=== PATIENT | female | born 1960 | race Caucasian/White ===

== ENCOUNTER 2018-04-14 19:55 | Inpatient (IN) | payer BC, OTHER ==
[~2018-04-14] VITALS: Ht 149.9 cm; Wt 94.6 kg
[~2018-04-14 19:55] MED LIST: COZAAR50 MG PO; HYDROCODON-ACE1 EA12 PO; METFORMIN HCL1000 MG PO; ZOCOR20 MG PO
--- OUTSIDE RECORDS SUMMARY | 2018-04-14 19:57 | XMS REPORT ---
Author Author [facility] Address Unknown Phone Unavailable Care Team Providers Care Water Softener Servicer And Installer Name Role Phone Unavailable Unavailable Payers Payer Name Policy Type Policy Number Effective Date Expiration Date Problems This patient has no known problems. Allergies, Adverse Reactions, Alerts Allergy Name Allergy Type Status Severity Reaction(s) Onset Date Inactive Date Treating Clinician Comments Sulfa (Sulfonamide Antibiotics) DA Active SV 2015-09-15 00:00:00 Medications This patient has no known medications.
[2018-04-14] MEDS ORDERED: ASPIRIN 81 MG CHEW TAB PO ONE (20:15)
--- NOTE | 2018-04-14 20:30 | NUR ---
ER INFORMED OF POSTIVE TROPONIN OF 0.29 - RERUN OF CARDIAC MARKERS ORDERED SPECIMEN WAS HEMOLYZED
--- NOTE | 2018-04-14 21:00 | NUR ---
ER MD INFORMED OF SECOND POSITIVE TROPONIN ATER RERUN OF 0.25
--- NOTE | 2018-04-14 21:48 | Diagnostic Imaging Report ---
EXAM: CT CHEST WITH CONTRAST-HOPD DATE: 04/14/2018 12:00 AM INDICATION: Chest pain, shortness of breath COMPARISON: None TECHNIQUE: Multidetector CT scanning of the chest was performed. Coronal and sagittal multiplanar reformations were obtained. CT low dose techniques were utilized, as applicable. IV Contrast: 100 ml Isovue 370/300 FINDINGS: LUNGS AND PLEURA: No consolidations or edema. No effusions or pneumothorax. HEART, MEDIASTINUM, VESSELS: Normal heart size and aortic caliber. Coronary artery and aortic atherosclerotic calcifications. Slightly suboptimal contrast bolus (HU 238); otherwise no evidence of acute pulmonary embolism. The main pulmonary artery is borderline enlarged, 3 cm. UPPER ABDOMEN: Unremarkable. MUSCULOSKELETAL: No acute findings. IMPRESSION: No evidence of acute pulmonary embolism or other acute abnormality. Signed by: Dr Penny Rehman MD on 04/14/2018 9:45 PM
--- NOTE | 2018-04-14 21:55 | Diagnostic Imaging Report ---
CXR 1 VEW - HOPD, Technique: CXR 1 VEW - HOPD Comparison: None Clinical history: Chest pain, shortness of breath DISCUSSION: Heart size is upper limits of normal. Otherwise unremarkable appearance of the heart, mediastinum, lungs and pleural spaces. IMPRESSION: No acute abnormality Signed by: Dr Penny Rehman MD on 04/14/2018 9:51 PM
[2018-04-14] MEDS ORDERED: ENOXAPARIN SODIUM INJ 100 MG/ML SYR SC STA (22:14)
[2018-04-14] MEDS ORDERED: AMLODIPINE BESY10 MG PO (22:24)
[2018-04-14] MEDS ORDERED: GLYBURIDE5 MG PO (22:24)
[2018-04-14] MEDS ORDERED: LASIX20 MG PO (22:24)
[2018-04-14] MEDS ORDERED: METOPROLOL TART50 MG PO (22:24)
[2018-04-14] MEDS ORDERED: DEXTROSE 50% SYRINGE 50 ML IV PRN (22:30)
[2018-04-14] MEDS ORDERED: NITROGLYCERIN 0.4 MG SUBL SL PRN (22:30)
[2018-04-14] MEDS ORDERED: METOPROLOL TARTRATE 25 MG TAB PO SCH (22:30)
--- NOTE | 2018-04-14 23:22 | NUR ---
[facility] CALLED - ETA 30MINS
[2018-04-15] VITALS (10 sets, daily range): BP systolic 116–142; BP diastolic 65–81
--- NOTE | 2018-04-15 03:57 | NUR ---
PT ARRIVED ON THE UNIT VIA STRETCHER AT 2348. PT IS A&OX3. PT DENIES CHEST PAIN, SOB, AND N/V. RESPIRATION IS EVEN AND UNLABORED, NO DISTRESS NOTED. PT ORIENTED TO THE ROOM, BED IN THE LOWEST POSITION, LOCKED, AND CALL LIGHT WITHIN REACH. ADMISSION AND HEAD TO TOE ASSESSMENT COMPLETE. WILL CONTINUE TO MONITOR.
[2018-04-15 06:17] LABS: CHOL/HDL RATIO 5.4 (3.0-3.6)
[2018-04-15] MEDS ORDERED: CLOPIDOGREL BISULFATE 75 MG TAB PO NR (06:30)
--- NOTE | 2018-04-15 06:41 | NUR ---
NOTIFIED DR Kashmir YUSUF OF TROPONIN OF 1.8. PER DR YUSUF KEEP PT NPO, NS AT 70ML/HR, AND PLAVIX X1 600MG. WILL CONTINUE TO MONITOR.
[2018-04-15] MEDS: SODIUM CHLORIDE 0.9% 1000ML 1,000 ML IV SCH ×2 (07:08→21:04)
[2018-04-15] MEDS: INSULIN REGULAR, HUMAN 100 UNIT/1 ML 3ML VIAL SQ SCH ×4 (07:30→21:05)
--- NOTE | 2018-04-15 07:37 | NUR ---
pt resting in bed, no s/s distress. no c/o CP. pending possible cardiac intervention/procedure. pt NPO. will continue to monitor.
[2018-04-15] MEDS: FUROSEMIDE 20 MG TAB PO SCH (07:38)
[2018-04-15] MEDS: GLYBURIDE 5 MG TAB PO SCH ×2 (07:38→17:17)
[2018-04-15] MEDS: ASPIRIN 325 MG TAB EC PO SCH (07:39)
[2018-04-15] MEDS ORDERED: METFORMIN HCL 500 MG TAB PO SCH (08:00)
[2018-04-15] MEDS: AMLODIPINE BESYLATE 10 MG TAB PO SCH ×2 (09:00→17:17)
[2018-04-15] MEDS ORDERED: AMLODIPINE BESYLATE 10 MG TAB PO SCH (09:00)
[2018-04-15] MEDS ORDERED: METOPROLOL TARTRATE 25 MG TAB PO SCH (09:00)
[2018-04-15] MEDS ORDERED: FENTANYL CITRATE/PF 100MCG/2 ML INJ ONE (10:04)
[2018-04-15] MEDS ORDERED: LIDOCAINE HCL 2% LOCAL 20 ML VIAL ONE (10:04)
[2018-04-15] MEDS ORDERED: IOPAMIDOL 370 MG/ML 200 ML INFUS..BTL INJ ONE ×2 (10:04→10:57)
[2018-04-15] MEDS ORDERED: HEPARIN SOD/SOD CHLORIDE 2,000 ML ONE (10:04)
[2018-04-15] MEDS ORDERED: MIDAZOLAM HCL 2 MG/2 ML VIAL ONE ×2 (10:04→10:56)
[2018-04-15] MEDS ORDERED: SODIUM CHLORIDE 0.9% 1000ML 1,000 ML ONE (10:04)
--- NOTE | 2018-04-15 10:21 | NUR ---
consent signed, pt leaving unit for procedure
--- NOTE | 2018-04-15 10:35 | NUR ---
SPIRITUAL CARE - Pre-procedure Assessment: Pt requested prayer with Gis Scientist prior to cath. Intervention: Gis Scientist provided pastoral presence, hospitality, and sympathetic listening. Provided prayer. Outcome: Pt expressed appreciation. No need for follow up indicated at this time. [facility] Spiritual Care Department O: [phone] Pager: [phone] ([phone] number calling from)
--- NOTE | 2018-04-15 10:40 | NUR ---
CASE MANAGEMENT INITIAL ASSESSMENT Bakeshop Cleaner to bedside to discuss plan of care with patient/family. CM/SW role and care transitions discussed. Anticipated discharge plan discussed along with duration of care. CM/SW discussed patients right to make decisions in care. CM/SW work hours given. Patient lives: IN APARTMENT WITH GRANDSON Admit/Transfer: VIA ED FROM HOME POA/Emergency contact: KIN [phone] AND MARYANNE LEROY SISTER [phone] Current/Previous Home Health: NONE PCP/Follow-up Care: [facility] Current/Previous DME: NONE Other Services: NONE Employment Status: WORKS AT [employer] Areas of Concerns: NONE Referral Needs: NONE Education Needs: HEART DISEASE SPOKE WITH NURSE TO EDUCATE IMM/SMITH given and signed (if applicable): NA Goal for discharge: RETURN HOME INDEPENDENTLY CM/SW left business card at the bedside with contact information. Name and number was also written on the patients whiteboard. Patient verbalized understanding of discussion. CM will follow-up with ongoing discharge and transition of care needs.
--- NOTE | 2018-04-15 10:44 | Consultation ---
DATE OF CONSULTATION: April 15, 2018 CARDIOLOGY CONSULTATION REASONS FOR CONSULTATION: Myocardial infarction and elevated troponin. HISTORY: This is a 57-year-old lady who is known with longstanding history of diabetes mellitus, hypertension and hypercholesterolemia. She is followed by her physician. She is on oral hypoglycemic agents, statin, beta tracy and calcium channel tracy. Recently, she was given a prescription for insulin, but she did not start on that because of poorly controlled diabetes. The patient is also known to have GERD-like symptoms. Yesterday, she had prolonged episodes of chest pain, and she is having this episode more frequently. It felt like heartburn. Yesterday the pain was very severe, radiating to her back, associated with diaphoresis. She sought medical attention. She was seen in the emergency room and admitted for further management. Her 2nd set of cardiac enzymes showed troponin of 1.8, CK total of 182 and MB of 9. Cardiac consultation is obtained. I visited with the patient. Her symptoms are very typical for unstable coronary syndrome and acute coronary event. REVIEW OF SYSTEMS CARDIAC: As per acute illness in addition to moderate shortness of breath on exertion prior to this illness. Possible sleep apnea. No orthopnea. No paroxysmal nocturnal dyspnea. PULMONARY: No recent travel. No cough. No hemoptysis. GI: Repeated GERD-like symptoms but no hematemesis and no melena. : Increased frequency of urination, repeated urinary tract infections. MUSCULOSKELETAL: Back pain. NEUROLOGIC: Peripheral neuropathy-like symptoms. ENDOCRINE: Patient has poorly controlled diabetes mellitus. HEMATOLOGY: No easy bruising or bleeding. SOCIAL HISTORY: Her granddaughter lives with her. She is a divorcee. She is nonsmoker and jzm-sguiena-bmkttqy. She works at [employer]. HOME MEDICATIONS: Long list includin. Cozaar 50 mg a day. 2. Zocor 20 mg a day. 3. Metformin 1,000 mg twice a day. 4. Lopressor 25 mg twice a day. 5. Amlodipine 5 mg twice a day. 6. Amaryl 4 mg twice a day. 7. Recently insulin was started, but she has not taken it yet. ALLERGIES: SULFA. THE PATIENT ALSO HAS REPEATED ALLERGIES AND HAY FEVER-LIKE SYMPTOMS. PAST MEDICAL HISTORY 1. Hypertension. 2. Diabetes mellitus. 3. Hyperlipidemia. 4. Hysterectomy. 5. Right arthroscopic surgery. 6. Tonsillectomy. 7. Tubal ligation. FAMILY HISTORY: Father in his 40s with liver cirrhosis. Mother had diabetes and in her 50s. Three brothers, 2 of them already had stents. Four sisters. One sister had a problem with cancer. PHYSICAL EXAMINATION VITALS: Height of 4 feet 11 inches, weight of 210 pounds. Blood pressure 130/70. Heart rate of 80. Respiratory rate of 18. HEENT: Pupils are equal and reactive. NECK: No elevation of jugular venous pulsation. No bruit. CHEST: Decreased air entry and crackles. HEART: PMI at 1st left intercostal space. Normal 1st and 2nd heart sounds. ABDOMEN: Soft with good bowel sounds. EXTREMITIES: No cyanosis. No clubbing. No edema. NEUROLOGIC: Grossly nonfocal. LAB DATA: White blood cell count of 8000. Hemoglobin 12.6, hematocrit 32%. Platelet count 193,000. Sodium 142, potassium 4, BUN 12, creatinine 1, glucose 261. Troponin is 1.8. Triglycerides of 202, cholesterol 220, HDL 41, LDL 139. EKG showing normal sinus rhythm. QS in septal leads. Nonspecific ST changes. IMPRESSION AND PLAN 1. Mmi-HS-jjsjsguib myocardial infarction. 2. Hypertension. 3. Diabetes mellitus. 4. Hypercholesterolemia. 5. Obesity. Patient loaded with Plavix. The patient will be taken to the cardiac metallurgical laboratory assistant for cath with possible intervention. The procedure, risks, benefits and alternatives are discussed and explained. Patient would like to first talk to her family, and then we will proceed with our procedure. Pros and cons of treatment are discussed and explained, and questions are answered. Job#: [id number]
[2018-04-15] MEDS ORDERED: BIVALRIUDIN 250 MG/VIAL VIAL IV ONE (10:50)
[2018-04-15] MEDS ORDERED: SODIUM CHLORIDE 0.9% 50ML 50 ML ONE (10:51)
[2018-04-15] MEDS ORDERED: CLOPIDOGREL BISULFATE 75 MG TAB ONE (11:14)
[2018-04-15] MEDS ORDERED: ASPIRIN 325 MG TAB ONE (11:15)
[2018-04-15] MEDS ORDERED: CEFAZOLIN SOD 2 GM/D5W 50ML 50 ML IV ONE (11:15)
[2018-04-15] MEDS ORDERED: ACETAMINOPHEN 325 MG TAB PO PRN (11:30)
--- NOTE | 2018-04-15 12:00 | NUR ---
pt returned from labor law professor, aware of interventions done. vs stable. pulses palpable BLE. dressing to right groin CDI. pt aware to remain flat/straight until 330pm. family at bedside and feeding pt in reverse Trendelenburg
--- NOTE | 2018-04-15 12:35 | History and Physical ---
HISTORY OF PRESENT ILLNESS: Patient is a 57-year-old female who has a past medical history positive for diabetes, hypertension, obesity, hyperlipidemia, who came to the hospital complaining of chest pain radiating to the left side of the chest. Patient had a right bundle-branch block on the EKG. She was found to have elevated troponins. The patient was seen by Dr. Molina, licensed customs broker. The patient was taken to the cardiac cath. She was found to have triple-vessel disease, more severe in the left anterior descending artery. She had a stent placed. The patient is asymptomatic right now. REVIEW OF SYSTEMS CARDIOVASCULAR: She has chest pain, which is oppressive type, radiating to the left axillary area. No shortness of breath. RESPIRATORY: No shortness of breath and no cough. GASTROINTESTINAL: No nausea, no vomiting, no diarrhea. GENITOURINARY: No frequency. No dysuria. ALLERGIES: SHE CLAIMS SHE IS NOT ALLERGIC TO ANY MEDICATION. SOCIAL HISTORY: She does not smoke. She does not drink. PAST MEDICAL HISTORY: Hypertension, diabetes, hyperlipidemia. PHYSICAL EXAMINATION HEART: Regular rhythm. Normal S1, S2 sounds. LUNGS: Clear bilaterally. ABDOMEN: Soft. EXTREMITIES: No evidence of cyanosis, edema or trauma. She has a right leg with a puncture area from the cardiac cath. VITALS: Blood pressure 138/68, temperature 97.3, heart rate 91 per minute, respiratory rate 14 per minute. Oxygen saturation 95%. LABS: Cardiac enzymes were elevated, of course. FINAL IMPRESSION 1. Coronary artery disease, status post vgd-UX-ttlnkaica myocardial infarction, status post left anterior descending stent. 2. Uncontrolled diabetes mellitus, type 2. 3. Essential hypertension. 4. Mixed hyperlipidemia. 5. Obesity. PLAN OF TREATMENT: Continue aspirin 325 mg daily, metoprolol 25 mg twice a day, nitroglycerin 0.5 mg q.5 minutes sublingual p.r.n. for chest pain, no more than 3 tablets, glyburide 5 mg twice a day. Diabetic diet. Monitor blood sugar a.c. and nightly. Amlodipine 5 mg twice a day, Lipitor 40 mg daily, furosemide [address] Molina is on the case from cardiology. We are going to continue telemetry. Job#: [id number]
--- NOTE | 2018-04-15 13:18 | NUR ---
received report from raul in obs. pt is transferring from room 182 to 114. awaiting for pt to arrive to floor
[2018-04-15 13:42] LABS: CREATINE KINASE MB 7.4 ng/mL (0-5.0)
--- NOTE | 2018-04-15 14:17 | NUR ---
received pt to floor [id number]. pt is laying flat per protocol after labor and delivery nurse stent placement. pulse on bilateral feet present . right groin dressing dry and intact. pt aware of laying flat in bed until 15 30. family at bedside, call light is within easy reach, instructed to call for assistance if needed
--- NOTE | 2018-04-15 14:23 | NUR ---
spoke with md chapman regarding 1300 troponin level. states its reflective of cardiac cath stent placement done this afternoon. states pt does not need any more cardiac markers at this time. orders received
--- NOTE | 2018-04-15 15:01 | Operative Report ---
DATE OF PROCEDURE: April 15, 2018 PROCEDURES PERFORMED 1. Left heart cardiac catheterization with coronary angiography. 2. Left ventriculography. 3. Percutaneous coronary intervention with drug-eluting stent placement to the culprit proximal left anterior descending. 4. Angio-Seal closure of the right common femoral arteriotomy. INDICATION FOR PROCEDURE: A 57-year-old lady with history of hypertension, type 2 diabetes, obesity, presents to this institution with chest pain and keu-XN-bcdiudjkf myocardial infarction with troponin above 1.5. This is an urgent procedure that was done. DESCRIPTION OF PROCEDURE: After risks, benefits, pros and cons of today's procedure were explained, patient agreed to proceed. Patient was brought to the cardiac catheterization laboratory where the right groin was prepped and draped in the usual sterile fashion. Lidocaine 1% solution was used to numb the right groin region. Access to the right femoral artery was obtained, and a 4-Slovenian femoral sheath was placed. Selective coronary angiography of the citizen [place] left and right coronary arteries was performed with a JL-4 and 3DRC diagnostic catheters respectively. An angled pigtail was placed into the ventricle for ventriculography and hemodynamic assessment of the left ventricular filling pressures. After noting thrombus in the small 1st diagonal branch with a ruptured plaque and haziness in the prox-mid LAD with an 80% stenosis, this was deemed to be the culprit site. The 4-Slovenian femoral sheath at that point was upsized to a 6-Slovenian femoral sheath. A 6-Slovenian XB-3.5 LAD sidehole guiding catheter was utilized to select the left main coronary ostia. Utilizing a 300 cm 0.014 Bennett XT guidewire, we successfully crossed the lesion. We went in with a direct stenting strategy with a Resolute Tim 2.75 x 0.2 mm drug-eluting stent deployed up to 20 atmospheres pressure for 30 seconds. Final angiography revealed there was 0% residual stenosis, ANSELMO 3 flow and no complications. At that point in time, we decided to conclude the case. The femoral angiogram was performed, revealing a femoral artery stick, and a 6-Slovenian Angio-Seal closure device was successfully deployed, achieving hemostasis. COMPLICATIONS: None. ESTIMATED BLOOD LOSS: Minimal. FINDINGS 1. The left main is angiographically normal and gives rise to an LAD and circumflex branch. 2. The LAD has a heavily calcified prox-mid LAD stenosis with haziness at the proximal LAD with 80% stenosis and going across the 1st diagonal branch, which is small caliber and noted to be subtotaled with thrombus and with ANSELMO 1 flow. 3. The left circumflex artery gives rise to a large bifurcating mid marginal branch with mild luminal irregularities, and then it continues in the 3rd circumflex artery. After OM1 takeoff, there is a diffuse 70% to 80% stenosis which then terminates into a posterolateral marginal branch. This vessel was on the small side. 4. The RCA is dominant, gives rise to largely a right PDA and a very small right PLV branch. There is a 70% to 80% mid right PDA stenosis, and the vessel tapers rapidly. 5. The left ventricular ejection fraction is 60% with end-diastolic pressure of 22 mmHg. There is no significant LV to aortic pullback gradient. INTERVENTION SUMMARY: Successful treatment of the proximal 80% hazy LAD lesion implantation of a Resolute [place] 2.75 x 22 mm drug-eluting stent deployed at 20 atmospheres of pressure, resulting in 0% residual stenosis, ANSELMO 3 flow and no complications. PLAN/RECOMMENDATIONS 1. Aspirin and Plavix therapy. 2. Statin therapy. 3. Aggressive risk-factor modification medical therapy. 4. Six-hour bed rest post PCI today. 5. Overnight observation in the hospital for her iug-YI-zjrxvjwcd myocardial infarction. Job#: [id number] EV
[2018-04-15] MEDS ORDERED: SIMVASTATIN 20 MG TAB PO SCH (21:00)
[2018-04-15] MEDS ORDERED: ATORVASTATIN 20 MG TAB PO SCH (21:00)
[2018-04-16] VITALS: BP 138/69
[2018-04-16 04:30] VITALS: BP 127/67
[2018-04-16 05:55] LABS: BASOPHILS # (AUTO) 0.1 (0.0-0.1); BASOPHILS % 0.6 % (0.0-1.0); EOSINOPHILS # (AUTO) 0.2 (0.0-0.4); EOSINOPHILS % 2.2 % (0.0-6.0); HEMOGLOBIN 11.7 g/dL (12.0-16.0); LYMPHOCYTES # (AUTO) 2.5 (1.0-3.2); LYMPHOCYTES % 27.4 % (18.0-39.1); MEAN CORPUSCULAR HEMOGLOBIN 29.1 pg (28-32); MEAN CORPUSCULAR HGB CONC 33.4 g/dL (31-35); MEAN CORPUSCULAR VOLUME 87.1 fL (81-99); MONOCYTES # (AUTO) 0.7 (0.2-0.8); MONOCYTES % 7.9 % (4.4-11.3); NEUTROPHILS # (AUTO) 5.5 (2.1-6.9); NEUTROPHILS % 61.3 % (38.7-80.0); PLATELET COUNT 287 x10e3/uL (140-360); RED BLOOD COUNT 4.02 x10e6/uL (3.6-5.1); RED CELL DISTRIBUTION WIDTH 12.9 % (11.7-14.4)
[2018-04-16 06:17] LABS: ALANINE AMINOTRANSFERASE 23 IU/L (0-55); ALBUMIN 3.5 g/dL (3.5-5.0); ALBUMIN/GLOBULIN RATIO 1.1 (0.8-2.0); ALKALINE PHOSPHATASE 66 IU/L (40-150); ANION GAP 12.5 mmol/L (8-16); BLOOD UREA NITROGEN 12 mg/dL (7-26); BUN/CREATININE RATIO 15 (6-25); CALCIUM 9.1 mg/dL (8.4-10.2); CARBON DIOXIDE 25 mmol/L (22-29); CHLORIDE 102 mmol/L (98-107); CHOL/HDL RATIO 5.4 (3.0-3.6); CHOLESTEROL 210 MD/DL (0-199); EST GLOMERULAR FILTRATION RATE > 60 ML/MIN (60-); GLUCOSE 158 mg/dL (74-118); HDL CHOLESTEROL 39 MG/DL (40-60); LDL CHOLESTEROL 146 MG/DL (60-130); POTASSIUM 4.5 mmol/L (3.5-5.1); SODIUM 135 mmol/L (136-145); TRIGLYCERIDES 125 MG/DL (0-149)
--- NOTE | 2018-04-16 07:15 | NUR ---
REPORT GIVEN TO ONCOMING NURSE.PT RESTING IN BED WITH NO S/S OF DISTRESS.
[2018-04-16 08:36] VITALS: BP 130/68
[2018-04-16] MEDS: GLYBURIDE 5 MG TAB PO SCH (08:37)
[2018-04-16] MEDS: ASPIRIN 325 MG TAB EC PO SCH (08:38)
[2018-04-16] MEDS: FUROSEMIDE 20 MG TAB PO SCH (08:38)
[2018-04-16] MEDS: AMLODIPINE BESYLATE 10 MG TAB PO SCH (08:38)
[2018-04-16] MEDS: INSULIN REGULAR, HUMAN 100 UNIT/1 ML 3ML VIAL SQ SCH ×2 (08:40→12:10)
[2018-04-16 08:47] VITALS: BP 130/68
[2018-04-16] MEDS ORDERED: METOPROLOL TARTRATE 50 MG TAB PO SCH (09:00)
[2018-04-16] MEDS ORDERED: CLOPIDOGREL BISULFATE 75 MG TAB PO SCH (09:45)
--- NOTE | 2018-04-16 09:48 | NUR ---
zulma joshi with md chapman cleared discharge upon cardiology standpoint
[2018-04-16] MEDS: SODIUM CHLORIDE 0.9% 1000ML 1,000 ML IV SCH (11:06)
[2018-04-16] MEDS ORDERED: PLAVIX75 MG PO (11:44)
[2018-04-16] MEDS ORDERED: LIPITOR20 MG PO (11:45)
[2018-04-16] MEDS ORDERED: METOPROLOL TART25 MG PO (11:45)
--- NOTE | 2018-04-16 13:10 | NUR ---
pt off unit to home via wheel chair
--- NOTE | 2018-04-16 13:31 | Discharge Summary ---
HISTORY OF PRESENT ILLNESS: A 57-year-old female with past medical history positive for hypertension, history of diabetes, came with chest pain. She was diagnosed with non-ST segment elevation myocardial infarction. Dr. Molina, urban and regional planner, saw the patient. He found to have triple vessel disease and stent was placed on the left anterior descending artery. Patient is going home today. PHYSICAL EXAM VITAL SIGNS: Blood pressure 130/68, temperature 37.4, heart rate 93 per minute, respiratory rate 18 per minute, oxygen saturation 98%. HEART: Shows regular rhythm. Normal S1, S2 sounds. LUNGS: Clear bilaterally. LAB WORK: We have BMP: Sodium 135, potassium 4.5, chloride 102, CO2 of 25, BUN 12, creatinine 0.80, glucose 158. On the CBC, white blood count 8.94, hemoglobin 10.7, hematocrit 35.0, platelet count 287,000. AST 19, ALT 23, total bilirubin 0.8, alkaline phosphatase 66. FINAL IMPRESSION 1. Coronary artery disease, status post non-ST segment elevation myocardial fraction. 2. Uncontrolled diabetes mellitus type 2. 3. Essential hypertension. 4. Hypercholesterolemia. PLAN OF TREATMENT: Continue with amlodipine 5 mg twice a day, Plavix 75 mg daily, Lipitor 40 mg daily, furosemide 20 mg daily, glyburide 5 mg twice a day, metoprolol 50 mg daily. Patient is to hold the metformin for at least another day after the cardiac cath. SELVIN MENDEZ MD Job#: [id number] MERNA
[2018-04-16] MEDS ORDERED: AMLODIPINE BESYLATE 5 MG TAB PO SCH (17:00)
[2018-04-16] MEDS ORDERED: ATORVASTATIN 40 MG TAB PO SCH (21:00)
== END 2018-04-16 13:03 | disposition home or self-care (01) | DRG 247 ==
LOC: FSED 19:55 → ERHOLD 22:19 → IMCU 23:56 → OBSVTOIN 04-15 11:27 → MED/SURG 04-15 14:18
PROVIDERS: ADMIT Internal Medicine; ATTEND Internal Medicine
PROC: 027034Z Dilation of Coronary Artery, One Artery with Drug-eluting Intraluminal Device, Percutaneous Approach (ICD-10-PCS; principal; 2018-04-15)
PROC: 4A023N7 Measurement of Cardiac Sampling and Pressure, Left Heart, Percutaneous Approach (ICD-10-PCS; 2018-04-15)
PROC: B2111ZZ Fluoroscopy of Multiple Coronary Arteries using Low Osmolar Contrast (ICD-10-PCS; 2018-04-15)
PROC: B2151ZZ Fluoroscopy of Left Heart using Low Osmolar Contrast (ICD-10-PCS; 2018-04-15)
DX: I21.4 Non-ST elevation (NSTEMI) myocardial infarction (principal); Z68.41 Body mass index [BMI] 40.0-44.9, adult; I11.9 Hypertensive heart disease without heart failure; E11.9 Type 2 diabetes mellitus without complications; E66.01 Morbid (severe) obesity due to excess calories; E11.65 Type 2 diabetes mellitus with hyperglycemia; E78.5 Hyperlipidemia, unspecified; I25.10 Atherosclerotic heart disease of native coronary artery without angina pectoris; I45.10 Unspecified right bundle-branch block; Z79.4 Long term (current) use of insulin
CPT/HCPCS: 36415; 71045; 71260; 80053; 80061; 82550; 82553; 82948; 83880; 84484; 85025; 92928; 93005; 93458; 99284; C1766; C1817; G0378; J0583; J0690; J2001; J2250; J7030; Q9967

== ENCOUNTER 2018-11-25 16:06 | Observation (INO) | payer OTHER ==
[~2018-11-25] VITALS: Ht 149.9 cm; Wt 100.3 kg
[~2018-11-25 16:06] MED LIST changes: +AMLODIPINE BESY10 MG PO; +GLYBURIDE5 MG PO; +LASIX20 MG PO; +LIPITOR20 MG PO; +METOPROLOL TART25 MG PO; +METOPROLOL TART50 MG PO; +PLAVIX75 MG PO
--- OUTSIDE RECORDS SUMMARY | 2018-11-25 16:08 | XMS REPORT | Continuity of Care Document ---
Author Author [place] Address Unknown Phone Unavailable Care Team Providers Care Floor Press Operator Name Role Phone [facility] Information Exchange Unavailable Unavailable Problems No Data Provided for This Section Medications Medication Details Route Status Patient Instructions Ordering Provider Order Date Source Hydrocodone Bit/Acetaminophen (Hydrocodon-Acetaminoph 7.5-325) 1 Each Tablet, 1 Tab Oral As Needed Active 04/14/2018 [facility] Losartan Potassium (Cozaar) 50 Mg Tab, 50 Mg Oral Daily Active 04/14/2018 [facility] Amlodipine Besylate 10 Mg Tablet Daily Active [facility] Atorvastatin Calcium (Lipitor) 20 Mg Tablet Daily Active [facility] Clopidogrel Bisulfate (Plavix) 75 Mg Tablet Daily Active [facility] Furosemide (Lasix) 20 Mg Tablet Daily Active [facility] Glyburide 5 Mg Tablet Twice A Day Active [facility] Metformin Hcl 1,000 Mg Tablet Twice A Day Active [facility] Metoprolol Tartrate 25 Mg Tablet Twice A Day Active [facility] Metoprolol Tartrate 50 Mg Tablet Daily Active [facility] Simvastatin (Zocor) 20 Mg Tablet Bedtime Active [facility] Allergies, Adverse Reactions, Alerts Substance Category Reaction Severity Reaction type Status Date Reported Comments Source Sulfa (Sulfonamide Antibiotics) Unknown Allergy to Substance Active 04/14/2018 [facility] Immunizations No Data Provided for This Section Results Order Name Results Value Reference Range Date Interpretation Comments Source Capillary blood glucose measurement by glucometer (mass/volume) 295 70 - 120 04/16/2018 [facility] Blood leukocytes automated count (number/volume) 8.94 4.8 - 10.8 04/16/2018 [facility] Blood erythrocytes automated count (number/volume) 4.02 3.6 - 5.1 04/16/2018 [facility] Blood hemoglobin measurement (moles/volume) 11.7 12.0 - 16.0 04/16/2018 [facility] Automated blood hematocrit (volume fraction) 35.0 34.2 - 44.1 04/16/2018 [facility] Automated erythrocyte mean corpuscular volume 87.1 81 - 99 04/16/2018 [facility] Automated erythrocyte mean corpuscular hemoglobin (mass per erythrocyte) 29.1 28 - 32 04/16/2018 [facility] Automated erythrocyte mean corpuscular hemoglobin concentration measurement (mass/volume) 33.4 31 - 35 04/16/2018 [facility] RDW BldCo-Rto 12.9 11.7 - 14.4 04/16/2018 [facility] Automated blood platelet count (count/volume) 287 140 - 360 04/16/2018 [facility] Automated blood segmented neutrophil count as percentage of total leukocytes 61.3 38.7 - 80.0 04/16/2018 [facility] Automated blood lymphocyte count as percentage ot total leukocytes 27.4 18.0 - 39.1 04/16/2018 [facility] Automated blood monocyte count as percentage of total leukocytes 7.9 4.4 - 11.3 04/16/2018 [facility] Automated blood eosinophil count as percentage of total leukocytes 2.2 0.0 - 6.0 04/16/2018 [facility] Automated blood basophil count as percentage of total leukocytes 0.6 0.0 - 1.0 04/16/2018 [facility] IM GRANULOCYTES % 0.6 0.0 - 1.0 04/16/2018 [facility] Automated blood neutrophil count 5.5 2.1 - 6.9 04/16/2018 [facility] Blood lymphocytes count (number/volume) 2.5 1.0 - 3.2 04/16/2018 [facility] Blood monocytes automated count (number/volume) 0.7 0.2 - 0.8 04/16/2018 [facility] Automated blood eosinophil count 0.2 0.0 - 0.4 04/16/2018 [facility] Automated blood basophil count (count/volume) 0.1 0.0 - 0.1 04/16/2018 [facility] Absolute Immature Granulocyte (auto 0.05 0 - 0.1 04/16/2018 [facility] Serum or plasma sodium measurement (moles/volume) 135 136 - 145 04/16/2018 [facility] Serum or plasma potassium measurement (moles/volume) 4.5 3.5 - 5.1 04/16/2018 [facility] Serum or plasma chloride measurement (moles/volume) 102 98 - 107 04/16/2018 [facility] Serum or plasma carbon dioxide, total measurement (moles/volume) 25 22 - 29 04/16/2018 [facility] Serum or plasma anion gap 12.5 8 - 16 04/16/2018 [facility] Serum or plasma urea nitrogen measurement (mass/volume) 12 7 - 26 04/16/2018 [facility] Serum or plasma creatinine measurement (mass/volume) 0.80 0.57 - 1.11 04/16/2018 [facility] Serum or plasma urea nitrogen/creatinine mass ratio 15 6 - 25 04/16/2018 [facility] Estimated glomerular filtration rate (GFR) determination > 60 60 04/16/2018 [facility] Glucose measurement 158 74 - 118 04/16/2018 [facility] Serum or plasma calcium measurement (mass/volume) 9.1 8.4 - 10.2 04/16/2018 [facility] Serum or plasma total bilirubin measurement (mass/volume) 0.8 0.2 - 1.2 04/16/2018 [facility] Aspartate Amino Transf (AST/SGOT) 19 5 - 34 04/16/2018 [facility] Serum or plasma alanine aminotransferase measurement (enzymatic activity/volume) 23 0 - 55 04/16/2018 [facility] Serum or plasma protein measurement (mass/volume) 6.6 6.5 - 8.1 04/16/2018 [facility] Serum or plasma albumin measurement (mass/volume) 3.5 3.5 - 5.0 04/16/2018 [facility] Plasma globulin measurement (mass/volume) 3.1 2.3 - 3.5 04/16/2018 [facility] Serum or plasma albumin/globulin mass ratio 1.1 0.8 - 2.0 04/16/2018 [facility] Serum or plasma alkaline phosphatase measurement (enzymatic activity/volume) 66 40 - 150 04/16/2018 [facility] Serum or plasma triglyceride measurement (mass/volume) 125 0 - 149 04/16/2018 [facility] Serum or plasma cholesterol measurement (mass/volume) 210 0 - 199 04/16/2018 [facility] Serum or plasma cholesterol in LDL measurement (mass/volume) 146 60 - 130 04/16/2018 [facility] Serum or plasma cholesterol in HDL measurement (mass/volume) 39 40 - 60 04/16/2018 [facility] Serum or plasma total cholesterol/cholesterol in HDL mass ratio 5.4 3.0 - 3.6 04/16/2018 [facility] Serum or plasma creatine kinase measurement (enzymatic activity/volume) 160 29 - 168 04/15/2018 [facility] Serum or plasma creatine kinase MB measurement (mass/volume) 7.40 0 - 5.0 04/15/2018 [facility] Troponin I measurement by highly sensitive enzyme immunoassay 1.821 0 - 0.300 04/15/2018 [facility] Pathology Reports No Data Provided for This Section Diagnostic Reports No Data Provided for This Section Consultation Notes No Data Provided for This Section Discharge Summaries No Data Provided for This Section History and Physicals No Data Provided for This Section Vital Signs No Data Provided for This Section Encounters Location Location Details Encounter Type Encounter Number Reason For Visit Attending Provider ADM Date DC Date Status Source Discharged Inpatient [id number] SELVIN MENDEZ MD 04/15/2018 04/16/2018 [facility] Procedures No Data Provided for This Section Assessment and Plan No Data Provided for This Section Plan of Care Plan of Care Date Source Discharge Date 04/16/18 1:03pm Disposition HOME, SELF-CARE Instructions/Education Provided Heart Healthy Diet Prescriptions See Medication Section Additional Instructions/Education FOLLOW UP WITH MD MENDEZ IN 1-2 WEEKS 04/16/2018 [facility] Social History Social History Date Source Smoking Status Start Date Stop Date Former smoker 04/16/2018 [facility] Family History No Data Provided for This Section Advance Directives Order Name Results Value Date Source Advance Directives Advance Directives Directive Response Recorded Date/Time Does the patient have an advance directive? No 04/15/18 3:08am If yes, is advance directive on file with [facility]? No 07/27/13 7:17pm If not on file with [facility] will patient provide a copy? No 07/27/13 7:17pm Do you have a Directive to Physician? No 04/14/18 8:50pm Do you have a Medical Power of Insurance Loss Assessor? No 04/14/18 8:50pm Do you have an out of hospital Do Not Resuscitate Order? No 04/14/18 8:50pm Do you have any special needs we should be aware of? No 04/14/18 8:50pm Do you have a support person here with you today? Yes 04/14/18 8:50pm Did patient receive Notice of Privacy Practices? Yes 04/14/18 8:50pm Did patient receive patient rights and responsibilities? Yes 04/14/18 8:50pm 04/16/2018 [facility] Functional Status No Data Provided for This Section
[2018-11-25 17:11] LABS: BASOPHILS # (AUTO) 0.1 (0.0-0.1); BASOPHILS % 0.7 % (0.0-1.0); EOSINOPHILS # (AUTO) 0.2 (0.0-0.4); HEMATOCRIT 38.2 % (34.2-44.1); HEMOGLOBIN 12.9 g/dL (12.0-16.0); LYMPHOCYTES # (AUTO) 2.3 (1.0-3.2); LYMPHOCYTES % 20.5 % (18.0-39.1); MEAN CORPUSCULAR HEMOGLOBIN 28.9 pg (28-32); MEAN CORPUSCULAR HGB CONC 33.8 g/dL (31-35); MEAN CORPUSCULAR VOLUME 85.7 fL (81-99); MONOCYTES # (AUTO) 0.6 (0.2-0.8); MONOCYTES % 5.1 % (4.4-11.3); NEUTROPHILS # (AUTO) 7.8 (2.1-6.9); NEUTROPHILS % 71.1 % (38.7-80.0); PLATELET COUNT 315 x10e3/uL (140-360); RED BLOOD COUNT 4.46 x10e6/uL (3.6-5.1); RED CELL DISTRIBUTION WIDTH 12.8 % (11.7-14.4)
[2018-11-25 17:11] LABS: BILIRUBIN,URINE NEGATIVE (NEGATIVE); CLARITY,URINE SL CLOUDY (CLEAR); COLOR,URINE YELLOW (YELLOW); KETONES,URINE NEGATIVE (NEGATIVE); LEUKOCYTE ESTERASE ,URINE LARGE (NEGATIVE); NITRITE,URINE NEGATIVE (NEGATIVE); PROTEIN,URINE DIPSTICK NEGATIVE (NEGATIVE); URINE UROBILINOGEN 0.2 mg/dL (0.2 - 1)
[2018-11-25 17:34] LABS: BACTERIA,URINE FEW /HPF; EPITHELIAL CELLS,URINE FEW /LPF; TRICHOMONAS,URINE MODERATE
[2018-11-25 17:35] LABS: ALANINE AMINOTRANSFERASE 32 IU/L (0-55); ALBUMIN 4.3 g/dL (3.5-5.0); ALBUMIN/GLOBULIN RATIO 1.2 (0.8-2.0); ALKALINE PHOSPHATASE 82 IU/L (40-150); ANION GAP 18.7 mmol/L (8-16); BLOOD UREA NITROGEN 13 mg/dL (7-26); BUN/CREATININE RATIO 15 (6-25); CALCIUM 10.1 mg/dL (8.4-10.2); CARBON DIOXIDE 24 mmol/L (22-29); CHLORIDE 99 mmol/L (98-107); CREATINE KINASE 70 IU/L (29-168); CREATININE, SERUM 0.84 mg/dL (0.57-1.11); EST GLOMERULAR FILTRATION RATE > 60 ML/MIN (60-); GLUCOSE 197 mg/dL (74-118); POTASSIUM 3.7 mmol/L (3.5-5.1); SODIUM 138 mmol/L (136-145)
--- NOTE | 2018-11-25 17:45 | Diagnostic Imaging Report ---
A single frontal view of the chest. HISTORY: Ketones in urine, history of hypertension, diabetes, CHF, asthma, anemia COMPARISON: Chest radiograph April 14, 2018. DISCUSSION: Portable technique, limits sensitivity of the exam. Soft tissue attenuation partially limits sensitivity of the exam. Tubes/Lines: None Lungs and pleura: Low lung volumes result in bibasilar vascular crowding, accentuation of the pulmonary interstitial markings, central pulmonary vasculature, and the cardiac silhouette. Allowing for these limitations, the findings are as follows: No evidence of a consolidative pneumonia or pulmonary alveolar edema. No definite pleural effusion or pneumothorax is identified. Heart and mediastinum: The cardiomediastinal silhouette appears unremarkable. Bones and soft tissues: Appear unremarkable, given this limited exam. IMPRESSION: 1. No acute radiographic abnormality. 2. No significant interval change. Signed by: Dr. Ozzie Fuentes D.O., M.M.M. on 11/25/2018 5:41 PM
[2018-11-25] MEDS ORDERED: ASPIRIN 81 MG CHEW TAB PO ONE (18:00)
[2018-11-25] MEDS ORDERED: ASPIRIN 325 MG TAB PO ONE (18:00)
--- OUTSIDE RECORDS SUMMARY | 2018-11-25 18:23 | XMS REPORT | Continuity of Care Document ---
Author Author [place] Address Unknown Phone Unavailable Care Team Providers Care Television Agent Name Role Phone [facility] Information [facility] Unavailable Unavailable Problems No Data Provided for This Section Medications Medication Details Route Status Patient Instructions Ordering Provider Order Date Source Hydrocodone Bit/Acetaminophen (Hydrocodon-Acetaminoph 7.5-325) 1 Each Tablet, 1 Tab Oral As Needed Active 04/14/2018 [facility] Losartan Potassium (Cozaar) 50 Mg Tab, 50 Mg Oral Daily Active 04/14/2018 [facility] Amlodipine Besylate 10 Mg Tablet Daily Active [facility] Atorvastatin Calcium (Lipitor) 20 Mg Tablet Daily Active [facility] Clopidogrel Bisulfate (Plavix) 75 Mg Tablet Daily Active [facility] Furosemide (Lasix) 20 Mg Tablet Daily Active [facility] Glyburide 5 Mg Tablet Twice A Day Active [facility] Metformin Hcl 1,000 Mg Tablet Twice A Day Active [facility] Metoprolol Tartrate 25 Mg Tablet Twice A Day Active [facility] Metoprolol Tartrate 50 Mg Tablet Daily Active [facility] Simvastatin (Zocor) 20 Mg Tablet Bedtime Active [facility] Allergies, Adverse Reactions, Alerts Substance Category Reaction Severity Reaction type Status Date Reported Comments Source Sulfa (Sulfonamide Antibiotics) Unknown Allergy to Substance Active 04/14/2018 [facility] Immunizations No Data Provided for This Section Results Order Name Results Value Reference Range Date Interpretation Comments Source Capillary blood glucose measurement by glucometer (mass/volume) 295 70 - 120 04/16/2018 [facility] Blood leukocytes automated count (number/volume) 8.94 4.8 - 10.8 04/16/2018 [facility] Blood erythrocytes automated count (number/volume) 4.02 3.6 - 5.1 04/16/2018 [facility] Blood hemoglobin measurement (moles/volume) 11.7 12.0 - 16.0 04/16/2018 [facility] Automated blood hematocrit (volume fraction) 35.0 34.2 - 44.1 04/16/2018 [facility] Automated erythrocyte mean corpuscular volume 87.1 81 - 99 04/16/2018 [facility] Automated erythrocyte mean corpuscular hemoglobin (mass per erythrocyte) 29.1 28 - 32 04/16/2018 [facility] Automated erythrocyte mean corpuscular hemoglobin concentration measurement (mass/volume) 33.4 31 - 35 04/16/2018 [facility] RDW BldCo-Rto 12.9 11.7 - 14.4 04/16/2018 [facility] Automated blood platelet count (count/volume) 287 140 - 360 04/16/2018 [facility] Automated blood segmented neutrophil count as percentage of total leukocytes 61.3 38.7 - 80.0 04/16/2018 [facility] Automated blood lymphocyte count as percentage ot total leukocytes 27.4 18.0 - 39.1 04/16/2018 [facility] Automated blood monocyte count as percentage of total leukocytes 7.9 4.4 - 11.3 04/16/2018 [facility] Automated blood eosinophil count as percentage of total leukocytes 2.2 0.0 - 6.0 04/16/2018 [facility] Automated blood basophil count as percentage of total leukocytes 0.6 0.0 - 1.0 04/16/2018 [facility] IM GRANULOCYTES % 0.6 0.0 - 1.0 04/16/2018 [facility] Automated blood neutrophil count 5.5 2.1 - 6.9 04/16/2018 [facility] Blood lymphocytes count (number/volume) 2.5 1.0 - 3.2 04/16/2018 [facility] Blood monocytes automated count (number/volume) 0.7 0.2 - 0.8 04/16/2018 [facility] Automated blood eosinophil count 0.2 0.0 - 0.4 04/16/2018 [facility] Automated blood basophil count (count/volume) 0.1 0.0 - 0.1 04/16/2018 [facility] Absolute Immature Granulocyte (auto 0.05 0 - 0.1 04/16/2018 [facility] Serum or plasma sodium measurement (moles/volume) 135 136 - 145 04/16/2018 [facility] Serum or plasma potassium measurement (moles/volume) 4.5 3.5 - 5.1 04/16/2018 [facility] Serum or plasma chloride measurement (moles/volume) 102 98 - 107 04/16/2018 [facility] Serum or plasma carbon dioxide, total measurement (moles/volume) 25 22 - 29 04/16/2018 [facility] Serum or plasma anion gap 12.5 8 - 16 04/16/2018 [facility] Serum or plasma urea nitrogen measurement (mass/volume) 12 7 - 26 04/16/2018 [facility] Serum or plasma creatinine measurement (mass/volume) 0.80 0.57 - 1.11 04/16/2018 [facility] Serum or plasma urea nitrogen/creatinine mass ratio 15 6 - 25 04/16/2018 [facility] Estimated glomerular filtration rate (GFR) determination > 60 60 04/16/2018 [facility] Glucose measurement 158 74 - 118 04/16/2018 [facility] Serum or plasma calcium measurement (mass/volume) 9.1 8.4 - 10.2 04/16/2018 [facility] Serum or plasma total bilirubin measurement (mass/volume) 0.8 0.2 - 1.2 04/16/2018 [facility] Aspartate Amino Transf (AST/SGOT) 19 5 - 34 04/16/2018 [facility] Serum or plasma alanine aminotransferase measurement (enzymatic activity/volume) 23 0 - 55 04/16/2018 [facility] Serum or plasma protein measurement (mass/volume) 6.6 6.5 - 8.1 04/16/2018 [facility] Serum or plasma albumin measurement (mass/volume) 3.5 3.5 - 5.0 04/16/2018 [facility] Plasma globulin measurement (mass/volume) 3.1 2.3 - 3.5 04/16/2018 [facility] Serum or plasma albumin/globulin mass ratio 1.1 0.8 - 2.0 04/16/2018 [facility] Serum or plasma alkaline phosphatase measurement (enzymatic activity/volume) 66 40 - 150 04/16/2018 [facility] Serum or plasma triglyceride measurement (mass/volume) 125 0 - 149 04/16/2018 [facility] Serum or plasma cholesterol measurement (mass/volume) 210 0 - 199 04/16/2018 [facility] Serum or plasma cholesterol in LDL measurement (mass/volume) 146 60 - 130 04/16/2018 [facility] Serum or plasma cholesterol in HDL measurement (mass/volume) 39 40 - 60 04/16/2018 [facility] Serum or plasma total cholesterol/cholesterol in HDL mass ratio 5.4 3.0 - 3.6 04/16/2018 [facility] Serum or plasma creatine kinase measurement (enzymatic activity/volume) 160 29 - 168 04/15/2018 [facility] Serum or plasma creatine kinase MB measurement (mass/volume) 7.40 0 - 5.0 04/15/2018 [facility] Troponin I measurement by highly sensitive enzyme immunoassay 1.821 0 - 0.300 04/15/2018 [facility] Pathology Reports No Data Provided for This [...] Date DC Date Status Source Discharged Inpatient [id number] SELVIN MENDEZ MD 04/15/2018 04/16/2018 [facility] Procedures No Data Provided for This Section Assessment and Plan No Data Provided for This Section Plan of Care Plan of Care Date Source Discharge Date 04/16/18 1:03pm Disposition HOME, SELF-CARE Instructions/Education Provided Heart Healthy Diet Prescriptions See Medication Section Additional Instructions/Education FOLLOW UP WITH MD MENDEZ IN 1-2 WEEKS 04/16/2018 [facility] Social History Social History Date Source Smoking Status Start Date Stop Date Former smoker 04/16/2018 [facility] Family History No Data Provided for This Section Advance Directives Order Name Results Value Date Source Advance Directives Advance Directives Directive Response Recorded Date/Time Does the patient have an advance directive? No 04/15/18 3:08am If yes, is advance directive on file with [facility]? No 07/27/13 7:17pm If not on file with [facility] will patient provide a copy? No 07/27/13 7:17pm Do you have a Directive to Physician? No 04/14/18 8:50pm Do you have a Medical Power of Disk Recordist? No 04/14/18 8:50pm Do you have an [...] rights and responsibilities? Yes 04/14/18 8:50pm 04/16/2018 [facility] Functional Status No Data Provided for This Section
[2018-11-25] MEDS ORDERED: LEXAPRO10 MG PO (19:12)
[2018-11-25] MEDS ORDERED: CETIRIZINE HCL10 MG PO (19:14)
[2018-11-25] MEDS ORDERED: LOSARTAN POTAS100 MG PO (19:15)
[2018-11-25] MEDS ORDERED: NAPROXEN250 MG PO (19:16)
[2018-11-25] MEDS ORDERED: HUMULIN R100 UNIT/2 SC ×2 (19:17)
[2018-11-25] MEDS ORDERED: AUGMENTIN 875-1 EACH PO (19:20)
[2018-11-25] MEDS ORDERED: DEXTROSE 50% SYRINGE 50 ML IV PRN (19:30)
[2018-11-25 20:26] VITALS: BP 126/67
--- NOTE | 2018-11-25 20:35 | NUR ---
Patient arrived to the unit from er in a wheel chair with c/o chest pain since two days.assessment done. no resp.distress.iv right ac #20 is patent.tele #15 placed.showing sinus rhythm.consults called.oriented to the unit.phone and call light within reach.instructed to call for assistance as needed.has c/o head ache.notified to who is covering for .received new orders.keep monitor the pt.
[2018-11-25 20:40] VITALS: BP 126/67
[2018-11-25 21:00] VITALS: BP 126/67
[2018-11-25] MEDS: INSULIN LISPRO 100 UNIT/1 ML 3ML VIAL SQ SCH (21:10)
[2018-11-25] MEDS ORDERED: HYDROCODONE/APAP 5MG-325MG TAB PO PRN (22:30)
[2018-11-25] MEDS ORDERED: ACETAMINOPHEN 325 MG TAB PO PRN (22:30)
[2018-11-26] VITALS (7 sets, daily range): BP systolic 121–153; BP diastolic 58–72
--- NOTE | 2018-11-26 00:14 | NUR ---
Patient stated that Kayley Groves prescribed Amoxicillin 875 mg tablet orally every 12 hrs for 10 days for sinusitis..notofied to .ordered to renew the medicine.
--- NOTE | 2018-11-26 02:29 | NUR ---
Blood sarabjit and sent to the lab for cardiac markers.pt tolerated well.
[2018-11-26 03:01] LABS: CREATINE KINASE MB 0.9 ng/mL (0-5.0)
--- NOTE | 2018-11-26 05:00 | NUR ---
Resting in the bed.no chest pain voiced.
[2018-11-26 05:55] LABS: BASOPHILS # (AUTO) 0.1 (0.0-0.1); BASOPHILS % 0.6 % (0.0-1.0); EOSINOPHILS # (AUTO) 0.3 (0.0-0.4); EOSINOPHILS % 3.1 % (0.0-6.0); HEMOGLOBIN 11.7 g/dL (12.0-16.0); LYMPHOCYTES % 30.2 % (18.0-39.1); MEAN CORPUSCULAR HEMOGLOBIN 28.8 pg (28-32); MEAN CORPUSCULAR HGB CONC 33.4 g/dL (31-35); MEAN CORPUSCULAR VOLUME 86.2 fL (81-99); MONOCYTES # (AUTO) 0.7 (0.2-0.8); MONOCYTES % 7.3 % (4.4-11.3); NEUTROPHILS # (AUTO) 5.8 (2.1-6.9); NEUTROPHILS % 58.2 % (38.7-80.0); PLATELET COUNT 298 x10e3/uL (140-360); RED BLOOD COUNT 4.06 x10e6/uL (3.6-5.1); RED CELL DISTRIBUTION WIDTH 12.8 % (11.7-14.4)
[2018-11-26 06:24] LABS: ANION GAP 15.5 mmol/L (8-16); BLOOD UREA NITROGEN 16 mg/dL (7-26); BUN/CREATININE RATIO 21 (6-25); CALCIUM 9.5 mg/dL (8.4-10.2); CARBON DIOXIDE 25 mmol/L (22-29); CHLORIDE 102 mmol/L (98-107); CREATININE, SERUM 0.76 mg/dL (0.57-1.11); EST GLOMERULAR FILTRATION RATE > 60 ML/MIN (60-); GLUCOSE 154 mg/dL (74-118); POTASSIUM 3.5 mmol/L (3.5-5.1); SODIUM 139 mmol/L (136-145)
--- NOTE | 2018-11-26 07:07 | NUR ---
Bed side shift report given to the oncoming rn.stable condition.
--- NOTE | 2018-11-26 07:17 | NUR ---
RECEIVED PATIENT AWAKE RESTING IN BED NO SIGNS OF DISTRESS. BED LOW, WHEELS LOCKED, SIDE RAILS X2. CALL LIGHT IN REACH WILL CONTINUE TO MONITOR PATIENT.
[2018-11-26] MEDS ORDERED: AMOXICILLIN 250 MG CAP PO SCH (08:00)
[2018-11-26 08:04] LABS: CHOL/HDL RATIO 4.9 (3.0-3.6)
[2018-11-26] MEDS: METOPROLOL TARTRATE 25 MG TAB PO SCH ×2 (08:44→16:56)
[2018-11-26] MEDS: INSULIN LISPRO 100 UNIT/1 ML 3ML VIAL SQ SCH ×3 (08:45→16:56)
[2018-11-26] MEDS ORDERED: AMOXICILLIN/CLAVULANATE K 875 MG TAB PO SCH (09:00)
[2018-11-26] MEDS ORDERED: GABAPENTIN 300 MG CAP PO SCH (09:00)
[2018-11-26] MEDS ORDERED: CLOPIDOGREL BISULFATE 75 MG TAB PO SCH (09:00)
[2018-11-26] MEDS ORDERED: ASPIRIN 325 MG TAB EC PO SCH (09:00)
[2018-11-26] MEDS ORDERED: ASPIRIN 81 MG ENTERIC COATED PO SCH (09:00)
--- NOTE | 2018-11-26 09:15 | NUR ---
PATIENT A/O X3, EVEN RESPIRATIONS ON RA. BOWEL SOUNDS ACTIVE, SKIN INTACT, NO EDEMA. LEFT AC 20 GAUGE IV SL. IV INTACT AND PATENT. TELEMETRY #15 SR. PATIENT AMBULATES INDEPENDENTLY. NO CHEST PAIN AT THIS TIME. VITAL SIGNS STABLE. CALL LIGHT IN REACH, WILL CONTINUE TO MONITOR PATIENT.
--- NOTE | 2018-11-26 11:15 | NUR ---
NEW ORDER FROM CHRISTIANA WADE TO COMPLETE CONSENT FOR STRESS TEST.
--- NOTE | 2018-11-26 14:43 | Consultation ---
DATE OF CONSULTATION: 11/25/2018 REASON FOR CONSULTATION: Chest pain. CHIEF COMPLAINT: Left-sided chest pain. HISTORY OF PRESENT ILLNESS: This is a 58-year-old female with history of CAD, status post PCI in the LAD on April 14, 2018. History of diabetes, hypertension, hyperlipidemia, obesity, and reflux. The patient presents to [facility] ER with complaints of chest pain. Cardiology is consulted to evaluate the patient. The patient was seen with nurse. The patient reports she has been having chest pain for the past several months, was seen by her primary care physician and had a mammogram, which apparently was reported as normal in October of 2018. The patient reports left- sided chest pain. In fact, actually reports pain on her breasts, burning sensation from the axilla radiating to her breast tissue. Denies any exertional chest pain. Denies any shortness of breath. Denies nausea, vomiting. In fact, the patient reports that this is not the same type of chest pain that she had when she had a heart attack, which was pressure in nature, radiating to her back with shortness of breath, nausea, and diaphoresis. The patient had left heart catheterization in May 2018, which showed patent LAD stent, also showed the PDA and left circ disease were in fact FFR negative. The patient was advised for medical therapy and has been maintained on aspirin, Plavix, statin, beta-tracy, calcium channel tracy. The patient reports being compliant with her cardiac medications. PAST MEDICAL HISTORY: CAD, status post non STEMI, April 14, 2018, with PCI to LAD. The patient with recent left heart catheterization on June 24, 2018, which showed 60% PDA, FFR negative, 60% circ, which is FFR negative, and also showed LAD stent was patent. Diabetes, hypertension, hyperlipidemia, GERD, back pain, obesity, neuropathy, and history of herpes zoster. PAST SURGICAL HISTORY: Hysterectomy in 2004, tonsillectomy in 1924, tubal ligation in 1987, right rotator cuff in April 2012. FAMILY HISTORY: Mother at age 50. Apparently, had a history of diabetes. Father in his 40s with history of liver cirrhosis. One sister apparently from complications from brain tumor. SOCIAL HISTORY: She is . Lives with her granddaughter. Apparently, [place] [employer]. Denies any tobacco use. Occasionally drinks alcohol. ALLERGIES: SULFA AND LISINOPRIL. REVIEW OF SYSTEMS: GENERAL: Denies any weight changes, any fatigue, weakness, fevers, chills, night sweats. SKIN: Denies any rashes, sores. HEENT: Denies any nausea, vomiting, vision changes, blurred vision, double vision, any earaches, any epistaxis, hoarseness, or bleeding gums. CARDIAC: Chest pain as above. Positive for dyspnea on exertion. Denies any orthopnea, PND, any lower extremity edema. RESPIRATORY: Dyspnea on exertion. Denies any wheezing, coughing, hemoptysis. GI: Reports good appetite. Denies any nausea, vomiting, diarrhea, constipation, melena, hematochezia. URINARY: Denies any frequency, urgency, dysuria, hematuria. VASCULAR: Denies any lower extremity edema, claudication. MUSCULOSKELETAL: Reports generalized joint pains, back pains. NEUROLOGIC: Denies any numbness, tingling, paralysis, blackout, seizures. HEMATOLOGY: Denies any anemia or easy bruising. ENDOCRINE: Denies any heat or cold intolerance, any polyuria, polydipsia. PHYSICAL EXAMINATION: VITAL SIGNS: Height 59 inches, weight 221 pounds, BMI 44, temperature 97.2, pulse 76, respiratory rate 18, blood pressure 124/63. GENERAL: Appears stated age, reliable informant, in no acute distress. SKIN: No rashes, bruises, any vesicles were noted. HEENT: Normocephalic. Pupils equal, reactive. Extraocular movements intact. Trachea midline. Oral mucosa pink. No JVD. No thyroid or carotid bruits noted. HEART: Regular rate and rhythm. PMI in both 4th and 5th intercostal space. LUNGS: Bilateral breath sounds clear to auscultation. ABDOMEN: Soft, nontender, nondistended. MUSCULOSKELETAL: Good muscle strength throughout. No lower extremity edema noted. VASCULAR: +2 bilateral radial pulses. +2 DP, PT pulses bilaterally. NEUROLOGIC: Cranial nerves II through XII seem intact. LABORATORY DATA: Sodium 138, potassium 3.7, chloride 99, BUN 13, creatinine 0.8, and troponin 0.001, 0.006. BNP 17. White count 10, hemoglobin 11, hematocrit 35, platelets 298. Chest x-ray, no acute abnormalities noted. EKG, sinus rhythm with a right bundle branch block. Heart rate 96. ASSESSMENT: 1. Chest pain, atypical for cardiac. 2. History of coronary artery disease, status post PCI to LAD, April 14, 2018. 3. Hypertension. 4. Diabetes. 5. Hyperlipidemia. 6. History of herpes zoster. 7. Obesity. PLAN: 1. The patient presents with chest pain, however, very atypical for cardiac, nonexertional. In fact, the patient reports this is not the same type of pain that she has had when she had her heart attack in March 2018. Thus far, enzymes have been negative x2. We will obtain one more enzyme. 2. We will continue cardiac medications, which include her aspirin, Plavix, statin, beta-tracy therapy. 3. We will have a long discussion with the patient. We will go ahead and start Neurontin therapy since the pain seems neuropathic. 4. We will continue to monitor patient and adjust cardiac therapy as clinical course dictates. SEEN AND EXAMINED CASE DISCUSSED WITH PATIENT NUCLEAR STRESS TEST Dictated by Kostas Knox NP Alexis Molina MD DC/LIAT /[id number] CHRISTOPHE
[2018-11-26] MEDS ORDERED: DEXTROSE 50% SYRINGE 50 ML IV PRN (17:00)
[2018-11-26] MEDS ORDERED: ENOXAPARIN SOD INJ 40 MG/0.4 ML SYR SC SCH (17:00)
[2018-11-26] MEDS ORDERED: GLYBURIDE 5 MG TAB PO SCH (17:00)
[2018-11-26] MEDS ORDERED: ESCITALOPRAM OXALATE 10 MG TAB PO PRN (17:00)
[2018-11-26] MEDS ORDERED: METOPROLOL TARTRATE 50 MG TAB PO SCH (17:00)
--- NOTE | 2018-11-26 19:11 | Myoview Stress Test ---
DATE OF STUDY: 11/26/2018 00:00:00 Stress Test - Treadmill ONLY INDICATION FOR STUDY: Chest pain in a lady with known coronary artery disease. TECHNICAL DETAILS: After risks, benefits, pros and cons of today's exercise nuclear stress test explained to the patient, the patient agreed to proceed. The patient was brought down to the nuclear lab, where she received a 10.0 mCi dose of sestamibi intravenously, and after 40 minutes, the patient was taken to the [place] SPECT camera for resting myocardial perfusion imaging. She was then taken to the stress lab, where 12-lead EKG monitoring and blood pressure monitoring were obtained. She exercised on a Kali protocol going from a baseline heart rate of 95 beats per minute to a maximum of 160 beats per minute above our target heart rate of 136 beats per minute. At 3 minutes into the protocol, the patient received a 33 mCi dose of sestamibi intravenously and she was exercised for another minute to circulate the radioisotope. The patient was able to exercise for a total duration of 4 minutes and 1 second on the treadmill on the Kali protocol and blood pressure increased from a baseline of 157/76 to a maximum of 160/110, which is an appropriate hemodynamic response. Underlying EKG reveals normal sinus rhythm, normal axis, and there is no ST-T wave changes at peak exercise and there were no chest pain symptoms. After 25 minutes, the patient was then taken to the SPECT camera for stress myocardial perfusion imaging. FINDINGS: 1. Resting myocardial perfusion imaging reveals normal tracer uptake. 2. Stress myocardial perfusion imaging reveals largely normal tracer uptake. 3. The following gated measurements were obtained: End-diastolic volume 51 mL, end-systolic volume 15 mL, calculated left ventricular ejection fraction is 71% with normal wall motion. CONCLUSIONS: 1. Normal myocardial perfusion imaging study revealing normal tracer uptake and no of ischemia. 2. Exercise treadmill stress test portion of the exam was largely unremarkable. 3. Normal left ventricular function with calculated EF of 71%. 4. Overall stress test compatible with low risk stress test. MD BETTY Werner/LIAT /[id number]
--- NOTE | 2018-11-26 19:20 | NUR ---
Report taken from morning rn.walking rounds done.waiting for regarding discharge.
--- NOTE | 2018-11-26 19:45 | NUR ---
Assessment done.no chest pain.stable condition.
--- NOTE | 2018-11-26 20:45 | NUR ---
Provided with discharge summary and education.removed iv cannula and applied pressure dressing.D/c tele and returned to dept.wheeled off unit via wheel chair for discharge.
[2018-11-26] MEDS ORDERED: SIMVASTATIN 20 MG TAB PO SCH (21:00)
[2018-11-26] MEDS ORDERED: ATORVASTATIN 20 MG TAB PO SCH (21:00)
[2018-11-26] MEDS ORDERED: SIMVASTATIN 40 MG TAB PO SCH (21:00)
--- NOTE | 2018-11-26 22:22 | History and Physical ---
CHIEF COMPLAINT: Chest pain. HISTORY OF PRESENT ILLNESS: This is a 58-year-old female, past medical history of hypertension and CAD with stent in the past, type 2 diabetes, hyperlipidemia, who presents to the ED with complaints of substernal chest pain that began two days ago. The patient reports that she follows up with Dr. Molina, Cardiology. Of note, about a year ago, had cardiac stents placed. Since then, she has been doing well with no complaints. She now reports having substernal chest pain on the left side, radiates to her left shoulder and arm. Denies any associated nausea or vomiting. Denies any abdominal pain, cough, congestion, or any fevers. The patient is seen and evaluated at bedside on the medical floor. She is currently doing well with no other complaints at this time. She reports that she is being treated for underlying sinusitis, is on oral Augmentin. Augmentin was restarted. During my evaluation, her vital signs were stable. REVIEW OF SYSTEMS: 1. Pertinent positives: Left-sided chest pain. 2. Pertinent negatives: Denies any palpitation, nausea, vomiting, diarrhea, dysuria, hematuria, frequency, urgency, lightheadedness, dizziness, abdominal pain, headaches, shortness of breath, cough, congestion, fever, or any other complaints. The rest of 14-point review of systems have been reviewed with the patient and are negative. ALLERGIES: TO SULFA AND LISINOPRIL. HOME MEDICATIONS: 1. Norvasc 10 mg daily. 2. Plavix 75 mg daily. 3. Lexapro 10 mg daily. 4. Lasix 20 mg daily. 5. Loperamide 5 mg p.o. b.i.d. 6. Losartan 50 mg daily. 7. Metoprolol 50 mg p.o. b.i.d. 8. Zocor 20 mg daily. 9. Sertraline 10 mg daily. 10. Metformin 1000 mg p.o. b.i.d. She also takes insulin as well. PAST MEDICAL HISTORY: Diabetes, hypertension, hyperlipidemia, history of CAD with stent in the past, morbidly obese. PAST SURGICAL HISTORY: Left heart catheterization in the past with stent placement. FAMILY HISTORY: Hypertension and diabetes. SOCIAL HISTORY: No drugs or alcohol. Does not smoke. Good social support. LABORATORY FINDINGS: Show white count is 10, hemoglobin 9.7, hematocrit of 35, platelets of 298. Chemistry; sodium was 139, potassium is 3.5, chloride is 102, bicarbonate is 25, anion gap of 15. BUN 16, creatinine is 0.76, glucose was 203, calcium was 9.5. LFTs, total bilirubin was 0.4. AST is 18, ALT is 32. CK is 59. Troponins were negative. Albumin was 4.3, LDL is 118. Urinalysis, negative. MICROBIOLOGY: Urine cultures, no growth today. IMAGING STUDIES: Chest x-ray, no acute findings. PHYSICAL EXAMINATION: VITAL SIGNS: Temperature is 96.8, pulse 83, respiratory rate is 20, blood pressure 152/72, pulse ox 98% on room air GENERAL: Not in acute distress. Alert and oriented x3. Cooperative on examination. HEENT: Head is normocephalic and atraumatic. Eyes; pupils are equal, round, and reactive to light bilaterally. Extraocular movements intact bilaterally. Throat, no evidence of erythema or exudates in the posterior pharynx. Has poor dentition. NECK: Supple. Good range of motion. PULMONARY: Clear to auscultation bilaterally. No wheezing, no rales, no rhonchi, no crackles appreciated. CARDIOVASCULAR: Positive S1, S2. No murmurs, rubs, or gallops appreciated. ABDOMEN: Soft, nondistended, and nontender to palpation. Bowel sounds present. MUSCULOSKELETAL: Strength is 5/5 throughout. No evidence of any muscles deficits on examination. No weakness appreciated. NEUROLOGIC: Cranial nerves II through XII are grossly intact. No evidence of any neurological deficits on exam. SKIN: Intact. Warm to touch. Good cap refill. PSYCHIATRIC: Normal affect and mood. EXTREMITIES: No edema. Good range of motion throughout. IMPRESSION: 1. Chest pain, rule out acute coronary syndrome with history of coronary artery disease with stents in the past. 2. Type 2 diabetes. 3. Hypertension. 4. Hyperlipidemia. 5. Morbid obesity. PLAN: At this time, troponins are negative. EKG shows no acute findings. A 2D echo for Cardiology. Cardiac stress test was ordered, will occur later today. Cardiology was consulted and evaluated the patient. Resume same antiglycemic medications at home. Put insulin sliding scale and Accu-Cheks. Resume antihypertensive medications with no changes. PT and OT evaluation. Lovenox for DVT prophylaxis. MD KASH Beauchamp/LIAT /[id number]
--- NOTE | 2018-11-27 06:14 | Discharge Summary ---
FINAL DISCHARGE DIAGNOSES: 1. Atypical chest pain. 2. History of coronary artery disease, status post stress testing found to be negative, history of status post percutaneous coronary intervention to the LAD back in March 2018. 3. Hypertension. 4. Type 2 diabetes. 5. Hyperlipidemia. 6. Obesity. CONSULTANTS: Cardiology. PHYSICAL EXAMINATION: VITAL SIGNS: Temperature is 96.8, pulse 83, respiratory rate is 20, blood pressure 153/72, and pulse ox 98% on room air. LABORATORY DATA: White count 10, hemoglobin 11.7, hematocrit 35, and platelets of 298. Chemistry; sodium 139, potassium is 3.5, chloride was 102, bicarbonate is 25, and anion gap of 15, BUN was 16, creatinine was 0.76, glucose is 154, calcium is 9.5, total bilirubin is 0.4, AST is 18, and ALT is 32. Troponins were negative. Albumin 4.3. LDL 118. Urinalysis was negative. Microbiology; urine cultures no growth. IMAGING STUDIES: Chest x-ray was negative. Cardiac stress test shows normal EF of 71%. HOSPITAL COURSE: 58-year-old female, with history of CAD, status post PCI back in March 2018, presents to the ED with complaints of substernal chest pain ongoing for the last several days, needing further evaluation and management. The patient came into the ED to be further evaluated. While here, the patient was under observation. Cardiology was consulted. Cardiac enzymes were found to be negative. EKG showed no acute findings. Cardiac stress test was found to be normal. The patient was then cleared for discharge by Cardiology with no further workup needed. The patient is to continue with same cardioprotective medications for discharge. On discharge, the patient was doing well, back to normal baseline, had no other complaints. On the day of discharge, vital signs were stable, labs reviewed and stable. The patient was seen and evaluated, and examined thoroughly on the day of discharge. No other complaints. The patient verbalized understanding and agreed to plan of care to follow up as an outpatient with the primary care physician in 1 week and the manager regional in 2 weeks' time. MEDICATIONS: See med reconciliation form. DISPOSITION: Home. CONDITION: Stable. DIET: Heart healthy. In the event of any worsening symptoms, the patient advised to come back to the ED for further evaluation. Discharge summary took greater than 35 minutes. MD KASH Beauchamp/LIAT /[id number]
[2018-11-27] MEDS ORDERED: LOSARTAN POTASSIUM 100 MG TAB PO SCH (09:00)
[2018-11-27] MEDS ORDERED: CLOPIDOGREL BISULFATE 75 MG TAB PO SCH (09:00)
[2018-11-27] MEDS ORDERED: FUROSEMIDE 20 MG TAB PO SCH (09:00)
[2018-11-27] MEDS ORDERED: AMLODIPINE BESYLATE 10 MG TAB PO SCH (09:00)
== END 2018-11-26 20:45 | disposition home or self-care (01) ==
LOC: ER 16:06 → ERHOLD 17:55 → MED/SURG 20:30
PROVIDERS: ADMIT Internal Medicine; ATTEND Internal Medicine
DX: R07.89 Other chest pain (principal); I25.10 Atherosclerotic heart disease of native coronary artery without angina pectoris; I10 Essential (primary) hypertension; E11.9 Type 2 diabetes mellitus without complications; E78.5 Hyperlipidemia, unspecified; Z68.41 Body mass index [BMI] 40.0-44.9, adult; B02.9 Zoster without complications; E66.01 Morbid (severe) obesity due to excess calories
CPT/HCPCS: 36415 ×2; 71045; 78452; 80048; 80053; 80061; 81001; 82550 ×2; 82553 ×2; 82948; 83880; 84484 ×2; 85025 ×2; 87086; 93005; 93017; 93306; 99284; A9500; G0378 ×2; J1650

== ENCOUNTER 2022-10-01 09:56 | Emergency (ER) | payer MEDICARE, OTHER ==
[~2022-10-01] VITALS: Ht 149.9 cm; Wt 90.7 kg
[~2022-10-01 09:56] MED LIST changes: +AUGMENTIN 875-1 EACH PO; +CETIRIZINE HCL10 MG PO; +HUMULIN R100 UNIT/2 SC; +LEXAPRO10 MG PO; +LOSARTAN POTAS100 MG PO; +NAPROXEN250 MG PO
[2022-10-01] MEDS ORDERED: KETOROLAC TROMETHAMINE 60 MG/2 ML VIAL IM ONE (10:30)
[2022-10-01] MEDS ORDERED: KETOROLAC TROMETHAMINE 60 MG/2 ML VIAL ONE (10:40)
[2022-10-01] MEDS ORDERED: ULTRAM 50MG50 MG PO (11:27)
[2022-10-01 11:44] VITALS: O2SAT 97
== END 2022-10-01 11:49 | disposition home or self-care (01) ==
LOC: FSED 10:16
DX: M79.605 Pain in left leg (principal); M76.892 Other specified enthesopathies of left lower limb, excluding foot; I10 Essential (primary) hypertension; E11.40 Type 2 diabetes mellitus with diabetic neuropathy, unspecified; I50.9 Heart failure, unspecified; E78.5 Hyperlipidemia, unspecified; F41.9 Anxiety disorder, unspecified; D64.9 Anemia, unspecified; E78.00 Pure hypercholesterolemia, unspecified; M54.9 Dorsalgia, unspecified; G89.29 Other chronic pain
CPT/HCPCS: 73590; 99283; J1885